=== PATIENT | male | born 1975 | race Caucasian/White ===

== ENCOUNTER 2024-06-18 12:22 | Emergency (ER) | payer OTHER, SELFPAY ==
[2024-06-18] VITALS (8 sets, daily range): BP systolic 141–163; BP diastolic 73–89; PULSE 85–104; RESP 16–23; TEMP 36.7; O2SAT 96–100; BMI 25.7
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
[2024-06-18 12:39] LABS: Add Manual Diff / Slide Review NO; Basophils Absolute Auto 100 /uL (0-100); Basophils Percent Auto 0.3 % (0-2); Eosinophils Absolute Auto 100 /uL (0-450); Eosinophils Percent Auto 0.3 % (2-4); Hematocrit 41.6 % (41-53); Hemoglobin 14.1 g/dL (13.5-17.5); Lymphocytes Absolute Auto 2600 /uL (1100-4500); Lymphocytes Percent Auto 14.4 % (25-40); Mean Corpuscular HGB Conc 33.9 % (30-36); Mean Corpuscular Volume 88.6 fL (80-100); Monocytes Absolute Auto 900 /uL (0-900); Monocytes Percent Auto 5.2 % (3-14); Neutrophils Absolute Auto 14400 /uL (1500-7000); Neutrophils Percent Auto 79.8 % (50-75); Platelet Count 256 X10^3/uL (150-400); Red Blood Cell Count 4.69 X10^6/uL (4.5-5.9); Red Cell Distribution Width 13.5 % (11.6-14.8)
[2024-06-18] MEDS: ONDANSETRON 4 MG/2 ML INJ IV (12:45)
[2024-06-18] MEDS: SODIUM CHLORIDE 0.9% 1,000 ML 1000 ML IV (12:45)
--- NOTE | 2024-06-18 12:46 | PC.NURSE ---
[facility] called on red ER phone requesting to see pt. Was told she would need to wait until provider had assessed pt before I asked pt if [facility] could come back. histology supervisor requests if pt could provide ID. When appropriate pt was asked if he would like to provide ID to [facility]. Pt gave consent to provide his ID and pt's ID was given to [facility] outside of department.
[2024-06-18 12:51] LABS: Prothrombin Time 11.7 SECONDS (9.4-12.5)
[2024-06-18 12:54] LABS: PTT Partial Thromboplastin Tim 26 SECONDS (25.1-36.5)
[2024-06-18 12:59] LABS: Lactate (Lactic Acid) 1.9 mmol/L (0.7-2.1)
[2024-06-18 13:00] LABS: Alanine Aminotransferase 282 IU/L (<50); Albumin 4.5 g/dL (3.5-5.0); Albumin Globulin Ratio 1.4 (1.0-2.8); Alkaline Phosphatase 35 U/L (38-126); BUN Creatinine Ratio 22.7 (6-22); Bilirubin Total 0.7 mg/dL (0.2-1.3); Blood Urea Nitrogen 20 mg/dL (9-20); Carbon Dioxide 27 mmol/L (22-32); Chloride 103 mmol/L (98-107); Estimated Glomerular Filt Rate > 60 mL/min (>60); Globulin 3.3 g/dL (1.7-4.1); Glucose 119 mg/dL (70-100); Sodium 138 mmol/L (137-145); Total Protein 7.8 g/dL (6.3-8.2)
[2024-06-18 13:02] LABS: HEMOLYSIS 53 (0-50)
[2024-06-18 13:03] LABS: Potassium 4.1 mmol/L (3.4-5.1)
[2024-06-18 13:04] LABS: Aspartate Aminotransferase 250 IU/L (17-59)
[2024-06-18] MEDS: KETOROLAC 30 MG/ML VIAL 15 MG IV (13:08)
--- NOTE | 2024-06-18 13:08 | EKG_ITS ---
[address] [address] Test Date: 2024-06-18 Pat Name: Elizabeth Calzada Department: [facility] Room: Gender: Male Boilermaker: VLADISLAV : 1975 Requested By: Order Number: [id number] Reading MD: Pedro Luis Cardona Measurements Intervals [place] Rate: 91 P: 63 [place]: 136 QRS: 50 QRSD: 112 T: 26 QT: 378 QTc: 464 Interpretive Statements Normal sinus rhythm Possible Left atrial enlargement Incomplete right bundle branch block Nonspecific T wave abnormality Prolonged QT Electronically Signed On 06-18-2024 15:39:04 PDT by Pedro Luis Cardona
[2024-06-18 13:15] LABS: Ethanol (ETOH) < 10 mg/dL; Lipase 54 U/L (23-300)
[2024-06-18 14:01] LABS: UR Morphine/Opiate cutoff 300 Negative (Negative); Ur Creatinine Normal (Normal); Ur Specific Gravity Normal (Normal); Urine Amphetamines Negative (Negative); Urine Barbiturates Negative (Negative); Urine Benzodiazepines Negative (Negative); Urine Cocaine Negative (Negative); Urine MDMA Negative (Negative); Urine Methadone Negative (Negative); Urine Methamphetamines Negative (Negative); Urine Oxycodone Negative (Negative); Urine Phencyclidine Negative (Negative); Urine Tetrahydrocannabinol Negative (Negative); Urine Tricyclic Antidepressant Negative (Negative); Urine pH Normal (Normal)
--- NOTE | 2024-06-18 14:15 | PC.NURSE ---
Luiz cleared 1415. collar removed. Pt reports he needs to get to [place] and his ride is on the way. advised the results of his scans are concerning and Dr Handy will discuss plan of care with him.
== END 2024-06-18 15:18 | disposition left against medical advice (07) ==
PROVIDERS: Emergency Provider Emergency Medicine
DX: S22.31XA Fracture of one rib, right side, initial encounter for closed fracture (principal); S42.101A Fracture of unspecified part of scapula, right shoulder, initial encounter for closed fracture; S22.030A Wedge compression fracture of third thoracic vertebra, initial encounter for closed fracture; S22.040A Wedge compression fracture of fourth thoracic vertebra, initial encounter for closed fracture; S43.101A Unspecified dislocation of right acromioclavicular joint, initial encounter; S27.322A Contusion of lung, bilateral, initial encounter; V29.99XA Rider (driver) (passenger) of other motorcycle injured in unspecified traffic accident, initial encounter
CPT/HCPCS: 70450; 71045; 71275; 72125; 72170; 73030; 74177; 80053; 80305; 80320; 81003; 83605; 83690; 85025; 85610; 85730; 86850; 86900; 86901; 93005; 96361; 96374; 96375; 99285; 99291; J1885; J2405; Q9967